=== PATIENT | male | born 1975 | race Caucasian/White ===

== ENCOUNTER 2021-09-08 17:49 | Emergency (ER) | payer BC ==
[~2021-09-08 17:49] MED LIST: LISINOPRIL20 MG PO
[2021-09-08 19:37] LABS: HEMOGLOBIN 16.6 gm/dl (14.0-17.5); RED BLOOD COUNT 5.76 M/UL (4.20-5.50); WHITE BLOOD COUNT 7.8 K/UL (4.5-11.0)
[2021-09-08 19:44] LABS: BUN/CREATININE RATIO 13 (0-10)
[2021-09-09] MEDS ORDERED: ONDANSETRON ODT4 MG PO (00:17)
== END 2021-09-09 00:38 | disposition home or self-care (01) ==
LOC: ER1 17:49
PROVIDERS: Emergency Medicine
DX: B34.9 Viral infection, unspecified (principal); E11.9 Type 2 diabetes mellitus without complications; Z20.822 Contact with and (suspected) exposure to COVID-19; I10 Essential (primary) hypertension; Z88.8 Allergy status to other drugs, medicaments and biological substances
CPT/HCPCS: 0240U; 80053; 81001; 83690; 85025; 96361; 96374; 96375; 99284; J1885; J2405; Q9967